=== PATIENT | male | born 1970 | race Caucasian/White ===

== ENCOUNTER → 2017-10-24 11:24 | Outpatient (CLI) | payer OTHER, SELFPAY ==
--- NOTE | 2017-10-24 | DI.RAD.S_ITS ---
PROCEDURE: XR FOOT LT MIN 3V INDICATIONS: LEFT GREAT TOE PAIN TECHNIQUE: 3 views of the foot were acquired. COMPARISON: None. FINDINGS: Bones: No fractures or dislocations. No suspicious bony lesions. Soft tissues: No tibiotalar joint effusion. Achilles tendon appears normal. IMPRESSION: No definite radiographic abnormality. If pain persists, consider cross sectional imaging such as CT or MRI for further assessment. Dictated by: Benny Lawson [facility] Interpreted: Ros Piper MD on 10/24/2017 at 11:52 Approved by: Ros Piper M.D. on 10/24/2017 at 11:55
== END ==
PROVIDERS: Family Provider Family Medicine; Visit Provider Family Medicine
DX: M79.675 Pain in left toe(s) (principal)
CPT/HCPCS: 73630

== ENCOUNTER → 2019-05-23 08:44 | Outpatient (CLI) | payer OTHER, SELFPAY ==
--- NOTE | 2019-05-23 | DI.US.S_ITS ---
PROCEDURE: US ABDOMEN COMPLETE INDICATIONS: UNSPECIFIED ABDOMINAL PAIN TECHNIQUE: Real-time scanning was performed of the abdominal and retroperitoneal organs, with image documentation. COMPARISON: None. FINDINGS: Liver: Liver is diffusely increased in echogenicity. No focal hepatic abnormalities identified. Normal hepatic size. Gallbladder: No gallstones identified. Normal gallbladder wall. No pericholecystic fluid. Negative sonographic Jin sign. Biliary ducts: Intrahepatic bile ducts are non-dilated. Extrahepatic bile duct caliber measures 3.0 mm. Normal is 6-7 mm or less in diameter, or 10 mm or less post-cholecystectomy. Pancreas: Visualized portions of the pancreas are sonographically normal. Spleen: Spleen is normal in size and homogeneous in echotexture. Kidneys: Kidneys are normal in size and echotexture. Right kidney measures 12.7 cm long; left kidney measures 12.6 cm long. No hydronephrosis or nephrolithiasis. No solid masses. Aorta: Visualized aorta is normal in caliber at less than 3 cm. Iliacs: Proximal common iliac arteries are normal in caliber at less than 2.5 cm. IVC: Intrahepatic inferior vena cava is patent. Miscellaneous: No free abdominal fluid. IMPRESSION: 1. Increased hepatic echogenicity noted possibly related to hepatic steatosis but other sources of hepatocellular disease including hepatic cirrhosis cannot be excluded. Recommend clinical correlation. 2. No source for abdominal pain identified. Dictated by: Benny Lawson [facility] Interpreted: Clifton Pennington MD on 05/23/2019 at 10:49 Approved by: Clifton Pennington M.D. on 05/23/2019 at 11:52
== END ==
PROVIDERS: Family Provider Family Medicine; Visit Provider Family Medicine
DX: R10.9 Unspecified abdominal pain (principal)
CPT/HCPCS: 76700

== ENCOUNTER → 2023-01-18 15:32 | Outpatient (CLI) | payer OTHER, SELFPAY ==
--- NOTE | 2023-01-18 | DI.RAD.S_ITS ---
PROCEDURE: XR RIBS LT MIN 3V W CXR1V INDICATIONS: RIB PAIN TECHNIQUE: For views of the left ribs were acquired, along with a single view chest. COMPARISON: CR, XR CHEST 2VW, 01/21/2015, 10:01. FINDINGS: Surgical changes and devices: None. Bones and chest wall: No fractures or dislocations. No suspicious bony lesions. Overlying soft tissues appear unremarkable. Lungs and pleura: No pleural effusions or pneumothorax. Lungs appear clear. Mediastinum: Mediastinal contours appear normal. Heart size is normal. IMPRESSION: No displaced left rib fractures. Dictated by: Michael Rodrigues M.D. on 01/18/2023 at 17:08 Approved by: Michael Rodrigues M.D. on 01/18/2023 at 17:10
== END ==
PROVIDERS: Family Provider Family Medicine; PCP Family Medicine; Referring Provider Family Medicine; Visit Provider Family Medicine
DX: R07.81 Pleurodynia (principal)
CPT/HCPCS: 71101

== ENCOUNTER 2023-10-30 06:23 | Inpatient (IN) | payer OTHER, SELFPAY ==
[2023-10-30] VITALS (7 sets, daily range): BP systolic 144–156; BP diastolic 79–100; PULSE 86–109; RESP 16–18; TEMP 35.8–37.4; O2SAT 93–98; BMI 35.6; BMI 37.3
[2023-10-30] MEDS: SODIUM CHLORIDE 0.9% 1,000 ML 1000 ML IV (06:51)
[2023-10-30 06:55] LABS: Add Manual Diff / Slide Review NO; Basophils Absolute Auto 100 /uL (0-100); Basophils Percent Auto 0.6 % (0-2); Eosinophils Absolute Auto 200 /uL (0-450); Eosinophils Percent Auto 1.4 % (2-4); Hematocrit 42.5 % (41-53); Hemoglobin 14.4 g/dL (13.5-17.5); Lymphocytes Absolute Auto 2300 /uL (1100-4500); Lymphocytes Percent Auto 17.1 % (25-40); Mean Corpuscular HGB Conc 33.8 % (30-36); Mean Corpuscular Hemoglobin 29.6 PG (26-34); Mean Corpuscular Volume 87.6 fL (80-100); Monocytes Absolute Auto 1200 /uL (0-900); Monocytes Percent Auto 8.9 % (3-14); Neutrophils Absolute Auto 9900 /uL (1500-7000); Platelet Count 239 X10^3/uL (150-400); Red Blood Cell Count 4.85 X10^6/uL (4.5-5.9); Red Cell Distribution Width 14.1 % (11.6-14.8); White Blood Cell Count 13.8 X10^3/uL (4.5-11.0)
[2023-10-30 07:06] LABS: Alanine Aminotransferase 35 IU/L (<50); Albumin 4.6 g/dL (3.5-5.0); Albumin Globulin Ratio 1.4 (1.0-2.8); Alkaline Phosphatase 93 U/L (38-126); Aspartate Aminotransferase 54 IU/L (17-59); BUN Creatinine Ratio 13.3 (6-22); Bilirubin Total 1.1 mg/dL (0.2-1.3); Blood Urea Nitrogen 14 mg/dL (9-20); Calcium 9.2 mg/dL (8.4-10.2); Carbon Dioxide 29 mmol/L (22-32); Chloride 105 mmol/L (98-107); Estimated Glomerular Filt Rate > 60 mL/min (>60); Globulin 3.2 g/dL (1.7-4.1); Glucose 139 mg/dL (70-100); HEMOLYSIS < 15 (0-50); Lipase 56 U/L (23-300); Potassium 4.3 mmol/L (3.4-5.1); Sodium 141 mmol/L (137-145); Total Protein 7.8 g/dL (6.3-8.2)
[2023-10-30 07:07] LABS: Lactate (Lactic Acid) 1.1 mmol/L (0.7-2.1)
--- NOTE | 2023-10-30 07:07 | ED_ITS ---
HPI - General Adult General Chief complaint: Abdominal Pain Stated complaint: abd pain Time Seen by Provider: 10/30/23 06:30 Mode of arrival: Ambulatory History of Present Illness HPI narrative: 53-year-old gentleman with a history of hypothyroidism presents with 4 days of abdominal. Started initially is generalized abdominal pain on , he felt that it was likely secondary to dehydration. On the that seem that it was getting worse involved his entire abdomen and was difficult to bend forward. He has been using Motrin, Tylenol, fluids. He has been having regular bowel movements that do not change his pain. He does not typically have difficulties with constipation. He has experienced some nausea but no vomiting. No fevers, palpitations, chest pain. He noted that yesterday it seemed that is things were somewhat improving but when he awoke this morning pain was clearly localizing entirely to be right side and more toward the right lower quadrant. He comes in for further evaluation Related Data Home Medications Medication Instructions Recorded Confirmed fluticasone propionate 50 1 spray intranasal ##0 09/22/16 mcg/actuation nasal spray,suspension levothyroxine 200 mcg tablet 200 mcg PO QAM ##0 09/22/16 Allergies Allergy/AdvReac Type Severity Reaction Status Date / Time Penicillins [PENICILLINS] Allergy Mild Rash Verified 10/30/23 11:35 Sulfa (Sulfonamide Allergy Mild Verified 10/30/23 11:35 Antibiotics) [SULFA (SULFONAMIDE ANTIBIOTICS)] Review of Systems Review of Systems Narrative: Pertinent positive and negative findings as per HPI Patient History Medical History (Updated 10/30/23 @ 09:05 by Radha Pinzon MD) Hypothyroidism (acquired) Social History household members: spouse and children Smoking Status: Never smoker alcohol intake: never Smoking Status: Never smoker Substance Use Type: does not use Exam Initial Vital Signs Initial Vital Signs: Vital Signs Temperature 96.5 F L 10/30/23 06:28 Pulse Rate 109 H 10/30/23 06:28 Respiratory Rate 18 10/30/23 06:28 Blood Pressure 156/88 H 10/30/23 06:28 Pulse Oximetry 98 10/30/23 06:28 Oxygen Delivery Method Room Air 10/30/23 06:28 General: Healthy appearing, in no acute distress. Able to give a complete and coherent history. Well-nourished well-developed HEENT: Moist mucous membranes, normal sclera with reactive pupils, Neck: No JVD, supple Respiratory: Lungs are clear to auscultation, no wheezing no rales no rhonchi. Full and symmetrical air movement Cardiac: Regular rate and rhythm no murmurs no bruits Abdomen: Soft, mild tenderness along the right side more in the right lower quadrant no obvious flank pain. No rebound or guarding. Good bowel tones. He does not have an acute surgical abdomen Skin: Warm and dry, no rashes Neurologic: Grossly neurologically intact with no obvious asymmetries or abnormalities Extremities: No trauma, well perfused Psych: Cooperative, appropriate insight and affect Course Orders Ordered: ED Orders 10/30/23 07:31 CT abdomen pelvis w con Stat Hydrocodone Bitart/Acetaminophen (Hydrocodone/Acet 5/325 Tablet) 1 tab PO Q4H PRN PRN Reason: Pain, Moderate (4-6) Hydrocodone Bitart/Acetaminophen (Hydrocodone/Acet 5/325 Tablet) 2 tab PO Q4H PRN PRN Reason: Pain, Severe (7-10) Hydromorphone HCl (Hydromorphone 0.5 Mg Inj) 0.5 mg IV Q15MIN PRN PRN Reason: Pain, Hydromorphone HCl (Hydromorphone 0.5 Mg Inj) 0.5 mg IV Q2H PRN PRN Reason: Pain, Severe (7-10) Sodium Chloride (Normal Saline 0.9%) 1,000 mls @ 150 mls/hr IV CONT [facility] Last Infusion: 10/30/23 09:47 Dose: 0 mls/hr Documented By: Admin: 10/30/23 09:11 Dose: 150 mls/hr Documented By: KATHY Sodium Chloride (Normal Saline 0.45%) 1,000 mls @ 100 mls/hr IV CONT [facility] Last Admin: 10/30/23 11:00 Dose: 100 mls/hr Documented By: DAVI Levofloxacin (Levaquin) 500 mg in 100 mls @ 100 mls/hr IV Q24H [place] Last Admin: 10/30/23 12:45 Dose: 100 mls/hr Documented By: DAVI Ibuprofen (Ibuprofen 600 Mg Tablet) 600 mg PO Q6H PRN PRN Reason: Fever/Mild Pain (1-3) Naloxone HCl (Naloxone 0.4 Mg/Ml Vial) 0.2 mg IV Q2MIN PRN PRN Reason: Opiate Reversal Ondansetron HCl (Ondansetron 4 Mg/2 Ml Inj) 4 mg IV Q8HR PRN PRN Reason: Nausea And Vomiting Discontinued Medications Sodium Chloride (Normal Saline 0.9%) 1,000 mls @ 1,000 mls/hr IV BOLUS ONE Stop: 10/30/23 07:41 Last Infusion: 10/30/23 07:39 Dose: Infused Documented By: Admin: 10/30/23 06:51 Dose: 1,000 mls/hr Documented By: SEAN Piperacillin Sod/Tazobactam (Sod 3.375 gm/ Sodium Chloride) 100 mls @ 25 mls/hr IV Q8H [place] Clindamycin Phosphate (Cleocin) 900 mg in 50 mls @ 50 mls/hr IV Q6H [place] Ondansetron HCl (Ondansetron 4 Mg/2 Ml Inj) 4 mg IV NOW ONE Stop: 10/30/23 09:06 Last Admin: 10/30/23 09:09 Dose: Not Given Documented By: KATHY Vital Signs Vital signs: Vital Signs - 8 hr 10/30/23 08:49 10/30/23 09:00 10/30/23 09:00 Pulse Rate 90 86 Blood Pressure 153/79 H Pulse Oximetry 96 94 Medical Decision Making Lab Data 10/30/23 06:45 10/30/23 06:45 Labs: Lab Results 10/30/23 Range/Units 06:45 WBC 13.8 H (4.5-11.0) X10^3/uL RBC 4.85 (4.5-5.9) X10^6/uL Hgb 14.4 (13.5-17.5) g/dL Hct 42.5 (41-53) % MCV 87.6 (80-100) fL MCH 29.6 (26-34) PG MCHC 33.8 (30-36) % RDW 14.1 (11.6-14.8) % Plt Count 239 (150-400) X10^3/uL Neut % (Auto) 72.0 (50-75) % Lymph % (Auto) 17.1 L (25-40) % [place] % (Auto) 8.9 (3-14) % Eos % (Auto) 1.4 L (2-4) % Baso % (Auto) 0.6 (0-2) % Neut # (Auto) 9900 H (1311-4156) /uL Lymph # (Auto) 2300 (9536-8509) /uL [place] # (Auto) 1200 H (0-900) /uL Eos # (Auto) 200 (0-450) /uL Baso # (Auto) 100 (0-100) /uL Sodium 141 (137-145) mmol/L Potassium 4.3 (3.4-5.1) mmol/L Chloride 105 (98-107) mmol/L Carbon Dioxide 29 (22-32) mmol/L BUN 14 (9-20) mg/dL Creatinine 1.05 (0.66-1.25) mg/dL Estimated GFR > 60 (>60) mL/min BUN/Creatinine Ratio 13.3 (6-22) Glucose 139 H (70-100) mg/dL Lactate 1.1 (0.7-2.1) mmol/L Calcium 9.2 (8.4-10.2) mg/dL Total Bilirubin 1.1 (0.2-1.3) mg/dL AST 54 (17-59) IU/L ALT 35 (<50) IU/L Alkaline Phosphatase 93 (38-126) U/L Total Protein 7.8 (6.3-8.2) g/dL Albumin 4.6 (3.5-5.0) g/dL Globulin 3.2 (1.7-4.1) g/dL Albumin/Globulin Ratio 1.4 (1.0-2.8) Lipase 56 (23-300) U/L Urine Dip Bedside Urine Glucose Negative Bedside Urine Bilirubin - Negative Bedside Urine Ketone - Negative Urine Specific [place] 1.000 Bedside Urine Occult Blood - Negative Bedside Urine pH 7.0 Bedside Urine Protein - Negative Bedside Urine Urobilinogen - Negative Bedside Urine Nitrite - Negative Bedside Urine Leukocytes - Negative Esterase Point of care testing: Urine Dip Bedside Urine Glucose Negative Bedside Urine Bilirubin - Negative Bedside Urine Ketone - Negative Urine Specific [place] 1.000 Bedside Urine Occult Blood - Negative Bedside Urine pH 7.0 Bedside Urine Protein - Negative Bedside Urine Urobilinogen - Negative Bedside Urine Nitrite - Negative Bedside Urine Leukocytes - Negative Esterase Imaging Data CT scan - abdomen/pelvis: Radiologist's Impression: PROCEDURE: CT ABDOMEN PELVIS W CON INDICATIONS: Right-sided abdominal pain, localizing after 3 days of gener TECHNIQUE: After the administration of intravenous contrast, axial sections acquired from the lung bases to the pubic symphysis. Coronal and sagittal reformats were performed. For radiation dose reduction, the following was used: automated exposure control, adjustment of mA and/or kV according to patient size. COMPARISON: None. FINDINGS: Image quality: Diagnostic Lower chest: Unremarkable lung bases. Normal heart size where visualized Liver: Possible hepatic steatosis Gallbladder and biliary system: Unremarkable, nondilated Pancreas: No ductal dilation Spleen: Nonenlarged Adrenals: No discrete nodules Kidneys: No hydronephrosis. No solid renal mass. Vessels and lymph nodes: The main portal vein is patent. Duplicated IVC incidentally noted. No pathologic lymph nodes by size criteria. Bowel and peritoneum: No evidence of small bowel obstruction. No pathologic ascites or drainable abscess. Acute appendicitis. There is an appendicoliths at the neck measuring 1.2 centimeters. Body wall: Small periumbilical fat containing hernia. Pelvis: Possible small left inguinal fat containing hernia. The bladder is under distended. The prostate is not well evaluated on this study Bones: No acute or suspicious osseous finding. There are degenerative changes. IMPRESSION: Acute appendicitis. Moderate surrounding inflammatory changes. There is a 1.2 centimeter appendicolith at the neck. No drainable rim enhancing abscess at this time. Other findings above Dictated by: Jonny Moran M.D. on 10/30/2023 at 8:09 MDM Narrative Medical decision making narrative: CC: Right-sided abdominal pain localizing after 3 days of generalized abdominal pain Complicating co-morbidities: Hypothyroidism Data collected from: patient Differential considered: Constipation, colitis, appendicitis doubt kidney stone or pyelonephritis, possibility of cholecystitis is entertained Exam documented above, pertinent findings include: Fairly benign exam mild pain in the right lower quadrant without rebound or guarding Lab Test results independently reviewed as above. Pertinent findings: CBC shows a white count at 13.8 with no leukocytosis. No significant left shift Chemistries are reassuring. LFTs are unremarkable Lipase is appropriate at 56 Lactic acid is not elevated Imaging studies independently reviewed: CT scan of the abdomen is consistent with acute appendicitis. Appendicolith is appreciated an appendix is dilated to 1.2 cm. No obvious abscess but there is moderate surrounding inflammatory changes Consultations: Dr. Barker, agrees with current treatments as outlined and will admit the patient with anticipation of surgical intervention later today Treatments: Patient has not required any pain medication, he has been given fluids, we will be started on Zosyn Discussion: 53-year-old gentleman with acute appendicitis without sepsis or rupture. Antibiotics were started, he will remain NPO, we will be admitted by Dr. Barker with anticipation of surgical intervention later today. Patient is informed of all findings and plans for procedure, questions are answered and he is safe for transfer to the floor Discharge Plan Departure Patient Disposition: Admitted as Observation Clinical Impression: Acute appendicitis Qualifiers: Acute appendicitis type: with localized peritonitis Appendicitis gangrene presence: without gangrene Appendicitis perforation presence: without perforation Appendicitis abscess presence: without abscess Qualified Code(s): K 35.30 - Acute appendicitis with localized peritonitis, without perforation or gangrene Admit Date/Time: 10/30/23 09:04 Admit Provider: Gera Barker
--- NOTE | 2023-10-30 07:31 | DI.CT.S_ITS ---
PROCEDURE: CT ABDOMEN PELVIS W CON INDICATIONS: Right-sided abdominal pain, localizing after 3 days of gener TECHNIQUE: After the administration of intravenous contrast, axial sections acquired from the lung bases to the pubic symphysis. Coronal and sagittal reformats were performed. For radiation dose reduction, the following was used: automated exposure control, adjustment of mA and/or kV according to patient size. COMPARISON: None. FINDINGS: Image quality: Diagnostic Lower chest: Unremarkable lung bases. Normal heart size where visualized Liver: Possible hepatic steatosis Gallbladder and biliary system: Unremarkable, nondilated Pancreas: No ductal dilation Spleen: Nonenlarged Adrenals: No discrete nodules Kidneys: No hydronephrosis. No solid renal mass. Vessels and lymph nodes: The main portal vein is patent. Duplicated IVC incidentally noted. No pathologic lymph nodes by size criteria. Bowel and peritoneum: No evidence of small bowel obstruction. No pathologic ascites or drainable abscess. Acute appendicitis. There is an appendicoliths at the neck measuring 1.2 centimeters. Body wall: Small periumbilical fat containing hernia. Pelvis: Possible small left inguinal fat containing hernia. The bladder is under distended. The prostate is not well evaluated on this study Bones: No acute or suspicious osseous finding. There are degenerative changes. IMPRESSION: Acute appendicitis. Moderate surrounding inflammatory changes. There is a 1.2 centimeter appendicolith at the neck. No drainable rim enhancing abscess at this time. Other findings above Dictated by: Jonny Moran M.D. on 10/30/2023 at 8:09 Approved by: Jonny Moran M.D. on 10/30/2023 at 8:11
[2023-10-30] MEDS: SODIUM CHLORIDE 0.9% 1,000 ML 150 ML IV (09:11)
--- NOTE | 2023-10-30 09:20 | P.HP_ITS ---
History of Present Illness History of Present Illness Date Patient Seen: 10/30/23 Time Patient Seen: 09:20 Chief complaint: abd pain Narrative: Tejinder is a 53-year-old man who presents with right-sided abdominal pain since Sunday. The pain started out as diffuse and generalized and became localized to the right lower quadrant. He came to the ER this morning and a CT showed acute uncomplicated appendicitis. No prior abdominal surgery. He has not eaten today. [facility] Medical History (Updated 10/30/23 @ 09:05 by Radha Pinzon MD) Hypothyroidism (acquired) Social History Smoking Status: Never smoker Meds Home Medications and Allergies Home Medications Medication Instructions Recorded Confirmed Type fluticasone propionate 50 1 spray intranasal ##0 09/22/16 History mcg/actuation nasal spray,suspension levothyroxine 200 mcg tablet 200 mcg PO QAM ##0 09/22/16 History Allergies Allergy/AdvReac Type Severity Reaction Status Date / Time Sulfa (Sulfonamide Allergy Mild Redness of Verified 10/30/23 06:55 Antibiotics) Skin [SULFA (SULFONAMIDE ANTIBIOTICS)] Penicillins [PENICILLINS] Allergy Unknown Rash Verified 10/30/23 06:55 Exam Vital Signs (past 8 hours): - 10/30/23 06:28 10/30/23 08:49 Temperature 96.5 F L Pulse Rate 109 H 90 Respiratory Rate 18 Blood Pressure 156/88 H Pulse Oximetry 98 96 Oxygen Delivery Method Room Air Oxygen Delivery Method Room Air Narrative Exam Narrative: Tender to palpation at McBurney's point Objective Labs 10/30/23 06:45 10/30/23 06:45 Labs: Laboratory Results - last 24 hr 10/30/23 06:45 WBC 13.8 H RBC 4.85 Hgb 14.4 Hct 42.5 MCV 87.6 MCH 29.6 MCHC 33.8 RDW 14.1 Plt Count 239 Neut % (Auto) 72.0 Lymph % (Auto) 17.1 L [place] % (Auto) 8.9 Eos % (Auto) 1.4 L Baso % (Auto) 0.6 Neut # (Auto) 9900 H Lymph # (Auto) 2300 [place] # (Auto) 1200 H Eos # (Auto) 200 Baso # (Auto) 100 Sodium 141 Potassium 4.3 Chloride 105 Carbon Dioxide 29 BUN 14 Creatinine 1.05 Estimated GFR > 60 BUN/Creatinine Ratio 13.3 Glucose 139 H Lactate 1.1 Calcium 9.2 Total Bilirubin 1.1 AST 54 ALT 35 Alkaline Phosphatase 93 Total Protein 7.8 Albumin 4.6 Globulin 3.2 Albumin/Globulin Ratio 1.4 Lipase 56 Assessment & Plan Assessment and plan (1) Acute appendicitis: Qualifiers: Acute appendicitis type: with localized peritonitis Appendicitis abscess presence: without abscess Appendicitis gangrene presence: without gangrene Appendicitis perforation presence: without perforation Qualified Code(s): K35.30 - Acute appendicitis with localized peritonitis, without perforation or gangrene Status: Acute Plan We reviewed the risks and benefits of laparoscopic appendectomy versus antibiotic therapy and he would like to proceed with laparoscopic appendectomy. Zosyn has been started.
--- NOTE | 2023-10-30 09:48 | PC.NURSE ---
Report given to Abran COE
[2023-10-30] MEDS: SODIUM CHLORIDE 0.45% 1,000 ML 100 ML IV ×2 (11:00→21:26)
--- NOTE | 2023-10-30 11:17 | PM.CALLCOV.1 ---
Call Coverage Note Note Date of Patient Contact: 10/30/23 Time of Patient Contact: 11:17 Narrative of Care Provided: 53M acute appendicitis. -Ok for clears until midnight -OR 10/[address] Orlando
--- NOTE | 2023-10-30 12:06 | PC.NURSE ---
Pt A&O. Offers no overt c/o stating pain is roughly 2-3 and tolerable. RLQ pain became an issue this morning and Pt made decision to come in. See admission assessment.
[2023-10-30] MEDS: levoFLOXacin 500 MG/100 ML PIGGYBACK 100 MG IV (12:45)
[2023-10-30] MEDS: IBUPROFEN 600 MG TABLET PO (16:23)
[2023-10-31] VITALS (44 sets, daily range): BP systolic 113–171; BP diastolic 62–106; PULSE 82–122; RESP 10–31; TEMP 36.4–38.1; O2SAT 83–98; BMI 37.3
--- NOTE | 2023-10-31 | PATH_ITS ---
[facility] Accession Number: [id number] No. of containers..01 Tissue . 01 Material submitted: . colon - RIGHT COLON . 01 Diagnosis: Colon, right, resection: Benign colon and small intestine with acute suppurative appendicitis with serositis, and focal fat necrosis. Lymph nodes: Benign lymph nodes with reactive follicular hyperplasia and sinus histiocytosis. Resection margins: Viable Negative for malignancy. See comment. -- Comment: There are enlarged lymphoid follicles seen in the lamina propria of terminal ileum, the germinal centers of these follicles are polarized with unremarkable morphology, however immunohistochemical stains are performed to rule out low grade lymphoma due to significant lymphoid follicles expansion. The immunohistochemical stains are performed on part A4 with appropriate controls show unremarkable lymphoid follicles. CD3, and CD5 highlight unremarkable T cells. CD20 highlights unremarkable B cells. BCL-6 and CD10 highlight normal geminal centers. BCL-2 highlights T cells, and interfollicular B cells, and is negative in germinal center B cells. Ki-67 highlights normal proliferation rate in polarized germinal centers. -- Technical Note: The immunohistochemical stains reported were performed at [facility] ([address], [facility] [address]). They were developed and their performance characteristics determined by [facility] [employer] They have not been cleared or approved by the U.S. Food and Drug Administration, although such approval is not required for analyte-specific reagents of this type. [facility] 11/08/2023 [facility] Local . 01 Electronically signed: . Carlos Leggett MD, Pathologist NPI- [id number] . 01 Gross description: . Received in formalin with two identifiers and right colon, is a right colon with an attached fragment of ileum measuring 7.6 x 2.5 cm, and segment of colon measuring 18.2 cm in length by 6.2 cm in average diameter. The serosa is thornton to hemorrhagic with thornton adherent material consistent with exudate located on the cecum. The ileal margin is inked blue, the colon margin is inked black, and the mesenteric margin is inked green. Sectioning through the portion of the cecum as well as the exudate reveals a U-shaped appendix adhered to solid, possibly necrotic adipose, and measures 7.8 cm in length. The contains and is obstructed by a brown roughened fecalith measuring 1.4 cm in greatest dimension. The lumen ranges from 0.2 to 0.6 cm in diameter, and contains thornton purulent material. The agudelo average 0.3 cm thick and are story-thornton with a presumed full thickness defect. . The mucosa of the ileum is thornton and velvety with numerous small polypoid nodules measuring up to 0.2 cm in greatest dimension with no distinct lesions or invasions identified. The mucosa of the colon is thornton and velvety with slightly attenuated folds and no distinct lesions identified. No diverticula are identified. . Palpation reveals 23 thornton lymph node candidates ranging from 0.3 to 0.9 cm in greatest dimension. . [employer] sections are submitted as follows: A1: Rep margins en face. A2 Perpendicular proximal appendix to cecum and one-half of bisected distal tip of appendix. A3; Cross section of presumed appendiceal defect. A4: Ileum to include nodular mucosa. A5: Ileocecal valve. A6: Unremarkable colon, A7: Six intact lymph node candidates. A8: Three intact lymph node candidates. A9: Three intact lymph node candidates. A10: Three intact lymph node candidates. A11: Two bisected, differentially inked, lymph node candidates. A12: Two bisected, differentially inked, lymph node candidates. A13: Single bisected lymph node candidate. A14: Two bisected, differentially inked, lymph node candidates. A15: Single bisected lymph node candidate. ([id number]) /MRV 11/02/2023 1738 Local . 01 Pathologist provided ICD-10: K35.80 . 01 CPT . 751616, [id number], [id number] Specimen Comment: A courtesy copy of this report has been sent to [phone] Performed at: [address] [id number] MD Dewye Griffin MD Phone: [phone]
[2023-10-31] MEDS: LACTATED RINGERS 1,000 ML 42 ML IV ×2 (07:54→10:12)
[2023-10-31] MEDS: LABETALOL 20 MG/4 ML SYRINGE 5 MG IV (07:54)
--- NOTE | 2023-10-31 08:35 | PM.PREOP ---
Pre-operative Note Interval Note History & Physical reviewed/Exam performed by Physician: Yes Changes to H&P: No H&P completed within 30 days and has changed as indicated here:: 53M with acute appendicitis. Recommending laparoscopic appendectomy. Overview of operation reviewed. Operative risks including hemorrhage, infection, damage to surrounding structures reviewed. he provides his written and verbal consent to proceed.
[2023-10-31] MEDS: CEFAZOLIN 2 GM/100 ML PREMIX 100 ML IV (08:49)
--- NOTE | 2023-10-31 09:07 | SUR.OPER ---
Supine on padded OR bed, head on pillow, arms padded and tucked at sides, legs uncrossed, safety belt at thigh, tape over blanket over lower legs .
--- NOTE | 2023-10-31 09:08 | SUR.OPER ---
Supine on padded OR bed, head on pillow, safety belt at thigh, left arm padded and tucked at side. Right arm secured on padded arm board <90 degrees abduction. Legs uncrossed. Padded footboard in place. Tape over blanket to secure lower legs.
[2023-10-31] MEDS: BUPIVACAINE 0.25% (PF) VIAL 30 ML INJ (09:24)
[2023-10-31] MEDS: BUPIVACAINE LIPOSOME 266 MG/20 ML VIAL INJ (10:36)
--- NOTE | 2023-10-31 12:04 | SUR.PHASEI ---
Report given to
--- NOTE | 2023-10-31 12:42 | SUR.PHASEI ---
1210 Respiratory therapy to bedside for eval. Lungs clear with short breaths. Able to use incentive Spirometer up to 1200ml. Pt with a few coughs. Currently on 6L Oxy mask. Dr De La Rosa updated. CPAP ordered. Pt complains of pain, then dozes off.
--- NOTE | 2023-10-31 12:48 | SUR.PHASEI ---
CPAP being applied by RT Turcios. SBAR report to Travis COE at bedside.
--- NOTE | 2023-10-31 12:55 | SUR.PHASEI ---
Assumed care. Justtin from RT placing BIPAP. O2 sat 91%.
[2023-10-31] MEDS: hydrOXYzine 50 MG/ML INJ 25 MG IM (12:58)
[2023-10-31] MEDS: HYDROMORPHONE 1 MG INJ IV ×2 (13:16→13:27)
[2023-10-31] MEDS: KETOROLAC 30 MG/ML VIAL IV (13:17)
--- NOTE | 2023-10-31 13:19 | P.OP_ITS ---
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 CT abdomen pelvis demonstrates 1.5 cm fecalith in the base of the appendix and appendicitis. Surgeon: Ector Orlando Airplane Dispatcher: Malik Villanueva Anesthesia Type: General Operative Notes Findings: Base of the appendix is entirely fixated to the cecum which is significantly dilated and rigid. No hepatic metastasis no carcinomatosis. Specimen(s): other (Right colon) Estimated Blood Loss (mL): 100 Procedure in detail: Patient was brought to the operating room placed supine on the table. Bilateral lower extremity compression devices were applied. General anesthesia was induced he was intubated with an endotracheal tube. Was then prepped and draped in sterile fashion. Time-out was performed. He received levofloxacin prior to skin incision. Infraumbilical incision was made in the abdomen was entered atraumatically. Pneumoperitoneum was established. Additional 5 mm working ports were placed in the suprapubic and left lower quadrant. Inspection of the abdomen was made. The tip of the appendix was identified in it was traced to the cecum. The base of the appendix was entirely absent it was essentially fused with the cecum. The cecum was quite abnormal it was dilated and extremely firm really unable to grasp it at all using the laparoscopic instruments. Its consistency was concerning for possible appendiceal malignancy. We tried to mobilize the right colon medially by incising along the white line of Toldt but the colon was so firm that we really could not grasp it safely with the instrumentation in order to retracted. At This point we converted to an open operation. A midline laparotomy was made. Palpation of the cecum was again concerning given its rigidity. We mobilized the right colon all the way to the hepatic flexure. The small bowel was divided at the level of the terminal ileum using the AYUSH stapler 75 mm blue load. The mesentery to the small bowel was then divided using the LigaSure. Given our findings at this point were concerned for possible appendiceal carcinoma and if this were the case he would require of formal right hemicolectomy and therefore we decided to perform a right hemicolectomy as opposed to a ileocecectomy. The colon was then divided just distal to the hepatic flexure. We continued to mobilize the hepatic flexure and the sweep of the duodenal was identified and kept posterior out of harm's way. The ileocolic pedicle was skeletonized and then was ligated twice with 0 silk suture at its base. The specimen was then passed off the field la beled right hemicolectomy. We formed a [id number] functional end and anastomosis between the terminal ileum and the transverse colon. A crotch stitch with silk was placed. An enterotomy and a colotomy were made 3rd staple load was used to create a common channel. The common channel was inspected it was hemostatic and widely patent. The common opening was then closed in a running fashion using 3-0 PDS suture. Staple line was imbricated using interrupted silk suture. The anastomosis sat without tension no evidence of leak and was well perfused. The mesenteric defect was closed using Vicryl. The abdomen was then copiously lavaged hemostasis was checked and the irrigation returned clear. At this point we injected Exparel into the peritoneum. We raised skin flaps bilaterally. The fascia was then closed in a running manner using looped PDS suture. Given his obesity, large incision length which was necessary given his intra abdominal adiposity and the contaminated nature of the operation his risk of developing a incisional hernia was significant elevated. We therefore placed a piece of Phasix mesh in an onlay fashion over the anterior fascia. It was fixated in place using interrupted Ethibond suture. The subcutaneous tissue was then reapproximated using Vicryl suture. Skin was closed with hannah followed by the application of a sterile dressing. He tolerated the operation well and was transferred to recovery in stable condition. The sponge and instrument count at the end of the operation was correct x2 Complications: none Post-operative Condition: stable Disposition: ICU
--- NOTE | 2023-10-31 13:24 | SUR.PHASEI ---
Report called to Keyshawn
--- NOTE | 2023-10-31 13:28 | CM.DANOTE ---
Brief DCP Assessment Note Pt is a 53yo M here after experiencing right-sided abdominal pain since Sunday. Found to have acute appendicitis. Pt went to the OR with Dr. Orlando for a lap appy Wed 10.31.23. PCP [facility] REIMBURSEMENT SPECIALIST reviewed EMR. Per RN report, during lap appy surgeon found legions (cancerous?) during intervention. Pt to remain on BiPAP and transfer to the ICU. Per chart review, pt lives in [place] with spouse Jennifer (p [phone]) and children. Pt is indep/active/drives at baseline. Plan: CM team to follow closely for ongoing medical needs as medical POC continues to unfold. Anticipate home with spouse support when medically stable. ETHAN Aj Discharge Planning/Care Management CM Discharge Assessment Start: 10/31/23 13:27 Freq: Status: Active Protocol: Document 10/31/23 13:27 (Rec: 10/31/23 13:28 [id number]) Discharge Planning Assessment Assigned Production Team Member ETHAN Ricketts DPOA/Assigned Designee Name Jennifer, spouse Contact Information [phone] Advance Directives? No History Provided By Patient Prior Living Arrangements House Household Members spouse,children Type of transporation used prior to Drives own vehicle admit Independent with ADL's Yes Discharge Plan Home Referrals Initiated None needed Whiteboard Updated in Patient Room with No name and ext. # of Production Team Member Review Status In Process Please Provide Date Initial DC 10/31/23 Assessment Was Performed Next Review Type Continued Stay Review
[2023-10-31] MEDS: ONDANSETRON 4 MG/2 ML INJ IV (14:00)
--- NOTE | 2023-10-31 14:14 | SUR.PHASEI ---
Patient transferred to ICU after NC trail by RTTam. Patient 92% 2L NC. Transferred with cardiac technician and RT present. Patient transferred to the ICU bed by slider board. Report given to Keyshawn. Spouse present and was updated with patient status.
[2023-10-31] MEDS: HYDROCODONE/ACET 5/325 TABLET 2 TAB PO ×2 (15:26→19:08)
--- NOTE | 2023-10-31 15:41 | PT-IP ANOTE ---
PT eval order received and EMR reviewed but no operative note yet from the doctor after recent surgery/procedure. Talked with nurse and pt just got back up to the acute floor and not ready for PT. will f/u tomorrow.
[2023-10-31] MEDS: levoFLOXacin 500 MG/100 ML PIGGYBACK 100 MG IV (15:48)
[2023-10-31] MEDS: CELECOXIB 200 MG CAPSULE PO (20:53)
[2023-10-31] MEDS: SODIUM CHLORIDE 0.9% 1,000 ML 150 ML IV (21:56)
[2023-11-01] VITALS (21 sets, daily range): BP systolic 122–154; BP diastolic 70–87; PULSE 85–121; RESP 16–28; TEMP 36–37.1; O2SAT 92–97
[2023-11-01] MEDS: HYDROCODONE/ACET 5/325 TABLET 2 TAB PO ×4 (04:41→17:45)
[2023-11-01] MEDS: LEVOTHYROXINE 100 MCG TABLET 200 MCG PO (05:52)
--- NOTE | 2023-11-01 06:35 | PC.NURSE ---
pt slept most of the shift; he was medicated at 0441 w/ [place] 2 tabs for c/o pain 12/18; pt returned to sleeping after medication admin; tolerating po intake; no c/o nausea
[2023-11-01] MEDS: CELECOXIB 200 MG CAPSULE PO ×2 (08:31→20:59)
[2023-11-01] MEDS: ENOXAPARIN 40 MG/0.4 ML SYRINGE SUBCUT (08:34)
[2023-11-01] MEDS: METOPROLOL ER 25 MG TABLET PO (12:42)
--- NOTE | 2023-11-01 12:43 | PT.IIE ---
Current Diagnoses Acute appendicitis with localized peritonitis, without perforation or gangrene (11/01/23) Surgery Performed Operation Date: 10/31/23 08:00 Actual Procedures p RIGHT HEMICHOLECTOMY WITH MESH(Not Applicable) - Ector Orlando MD Medical History (Last Updated 10/30/23 @ 07:29 by Radha Pinzon MD) Hypothyroidism (acquired) Physical Therapy Inpatient Evaluation/Re-Eval M1 PT/OT-IP Prior Functional Status Start: 11/01/23 11:59 Freq: NEEDED Status: Active Protocol: Document 11/01/23 12:05 MB (Rec: 11/01/23 12:41 MB [id number]) Medical Review Prior Functional Status Medical History Reviewed Yes Diet/Fluid Consistency Regular Communication WNL Mobility and Gait I Activities of Daily Living and IADL's I Social History Household Members spouse,children Living Arrangements House Number of Floors (Floors) One Floor Number of Stairs To Enter/Railing? 3 steps with rail to enter Home Environment Standard Height Toilet,Walk in Shower Employment Status Retired M2 PT-IP Current Condition Start: 11/01/23 11:59 Freq: NEEDED Status: Active Protocol: Document 11/01/23 12:05 MB (Rec: 11/01/23 12:41 MB [id number]) Physical Therapy Current Condition Current Condition Evaluation Date 11/01/23 Treatment Diagnosis Appendectomy M3 PT-IP Subjective Start: 11/01/23 11:59 Freq: NEEDED Status: Active Protocol: Document 11/01/23 12:05 MB (Rec: 11/01/23 12:41 MB [id number]) Subjective Physical Therapy Visit Type Type Initial Evaluation Visit Start Time 12:05 Visit Stop Time 12:25 Number of PRODUCT HANDLER Visits 0 Physical Therapy Visit Comments Patient Comments Pt states that he does not have abdominal pain when not moving Therapy Pain Assessment Pain When Pain Assessed During Mobility Pain Present Pain Present Pain Reported Location Right Lower Abdomen Intensity 3 Scale Used Numeric (0 - 10) M4 PT-IP Mobility and Gait Start: 11/01/23 11:59 Freq: NEEDED Status: Active Protocol: Document 11/01/23 12:05 MB (Rec: 11/01/23 12:41 MB [id number]) PT-Bed Mobility Assessment Rolling Type of Rolling Log Rolling Level of Assist Independent Supine to Sit Supine to Sit Independent,Bedrails Sit to Supine Sit to Supine Independent Scooting Scooting to Edge of Bed Independent Scooting Up and Down in Bed Independent PT-Transfer Assessment Sit to and From Stand Sit to and from Stand Independent Equipment Transfer Assistive Device Gait Belt Orthotic/Prosthetic Devices or Brace: Yes Transfers Transfer Destination Bed,Chair Transfer Technique Walking Transfer Ability Level of Assist Independent,Standby Assistance Comments Mobility Comments Pt holds abdomen and uses rail to get up to sitting Gait Assessment Gait Gait Assistance Required: Independent Distance (Feet) 100 Able to Maintain Weight Bearing Status Yes During Gait Assistive Devices Assistive Device Gait Belt Orthotic/Prosthetic Devices or Brace: No Gait Deviations General Gait Pattern Antalgic Factors Limiting Gait Function Factors Limiting Gait Function Pain Comments Gait Comments Pt holds abdomen with gait and gait is slow Stair Climbing Assessment Evaluation Level of Assist On Stairs Independent Devices Stair Climbing Assistive Devices Left Railing Technique/Endurance Stair Climbing Direction Ascend and Descend Stair Climbing Technique Step Over Step Number of Steps Climbed 3 Query Text: Stair Climbing Set # Repetitions (reps) 1 PT-Balance Assessment Sitting Balance and Reactions Static Sitting Balance Ability Good Dynamic Sitting Balance Ability Good Standing Balance and Reactions Static Standing Balance Ability Good Dynamic Standing Balance Ability Good Device Used None M5 PT-IP Objective Assessments Start: 11/01/23 11:59 Freq: NEEDED Status: Active Protocol: Document 11/01/23 12:05 MB (Rec: 11/01/23 12:41 MB [id number]) Orientation Orientation/Cognition Level of Alertness Alert Orientation Name,Place,Situation Language Function Ability No Deficits Noted Safety Awareness Understands Safety Issues Memory Description No Deficits Noted Gross Range of Motion Upper Extremity ROM Assessment Within Functional Limits Lower Extremity ROM Assessment Within Functional Limits Strength Upper Extremity Strength Assessment Within Functional Limits Lower Extremity Strength Assessment Within Functional Limits M6 PT-IP Treatment Start: 11/01/23 11:59 Freq: NEEDED Status: Active Protocol: Document 11/01/23 12:05 MB (Rec: 11/01/23 12:41 MB [id number]) Physical Therapy Treatment Education Education Provided Post-Op Packet,Safety M7 PT-IP Assessment and Plan Start: 11/01/23 11:59 Freq: NEEDED Status: Active Protocol: Document 11/01/23 12:05 MB (Rec: 11/01/23 12:41 MB [id number]) PT Summary Assessment and Plan Potential Rehabilitation Potential Good Status of Condition at Evaluation Evolving Summary Impairments Activity Tolerance Progress Towards Goals Safe For Discharge Assessment Summary Pt is a 53 y/o male POD1 appendectomy. Pt holds abdomen with mobility and his gait is slow but he moves well and is able to perform log rolling today. No further acute PT needs. Pt has been up walking with and encouraged this as cleared by nsg. Frequency of Treatment Frequency Of Treatment Discharge Precautions Abdominal Surgery Precautions Log Roll,Lifting Restrictions, Gait Belt above Incisional Area Weight Bearing Status Weight Bearing Status Weight Bear as Tolerated Recommendations To Nursing Amount of Assist Needed Standby Assistance Discharge Recommendations PT Discharge Recommendations Home with Assistance Transportation Needs at Discharge Private Vehicle
--- NOTE | 2023-11-01 12:57 | P.PN_ITS ---
Subjective Subjective Date Patient Seen: 11/01/23 Time Patient Seen: 12:57 Interval history: Postoperative day 1 status post laparoscopic converted to open right hemicolectomy. -no acute overnight events. -tolerating clears Exam Vital Signs (past 8 hours): - 11/01/23 05:00 11/01/23 05:00 11/01/23 05:30 Temperature Pulse Rate 91 H 121 H Respiratory Rate 17 28 H Blood Pressure 149/77 H Pulse Oximetry 93 Oxygen Flow Rate 11/01/23 06:00 11/01/23 06:00 11/01/23 06:30 Temperature Pulse Rate 94 H 86 Respiratory Rate 17 18 Blood Pressure 135/71 Pulse Oximetry Oxygen Flow Rate 11/01/23 08:00 11/01/23 08:24 11/01/23 12:42 Temperature 98.2 F 98 F Pulse Rate 86 95 H 100 H Respiratory Rate 18 18 Blood Pressure 140/74 141/78 H 122/77 Pulse Oximetry 97 93 Oxygen Flow Rate 0 11/01/23 12:46 Temperature Pulse Rate 100 H Respiratory Rate 18 Blood Pressure 122/77 Pulse Oximetry 95 Oxygen Flow Rate Fraction of Inspired Oxygen 28 SaO2/FiO2 Ratio 335 Oxygen Delivery Method Nasal Cannula Oxygen Flow Rate 0 Narrative Exam Narrative: General adult man alert oriented no acute distress Abdomen soft appropriately tender to palpation. Objective Labs 10/30/23 06:45 10/30/23 06:45 [facility] Medical History (Updated 10/30/23 @ 09:05 by Radha Pinzon MD) Hypothyroidism (acquired) Social History household members: spouse and children Smoking Status: Never smoker alcohol intake: never Assessment & Plan Post-op Postoperative Procedures: Procedures Operation Date: 10/31/23 08:00 Actual Procedure Side Surgeon p RIGHT HEMICHOLECTOMY WITH MESH Not Applicable Ector Orlando MD Postoperative status narrative: 53-year-old male postoperative day 1 status post laparoscopic appendectomy converted to right hemicolectomy for concern of appendiceal carcinoma. Appropriate for postoperative day 1. Postoperative plan: routine post-op care Quality VTE Deep Vein Thrombosis/Pulmonary Embolism Present on Admission: No
--- NOTE | 2023-11-01 15:41 | CM.DPC ---
DCP Continued: Reviewed EMR and team rounds for pt?s medical status. Per RN, pt will need to continue to tolerate liquids and switch from IV pain meds to PO before dc home. DCP met with pt at bedside, introduced self and role. Pt confirmed living situation and support with , Jennifer. Pt endorses feeling better today and is eager to return home when medically cleared. Pt denied any discharge needs at this time. Plan: Anticipating dc home with spouse to transport. CM Team will continue to follow for coordination of discharge plans. JUAN RAMON Rosenbaum
[2023-11-01] MEDS: DOCUSATE 100 MG CAPSULE PO (16:04)
[2023-11-02] MEDS: HYDROCODONE/ACET 5/325 TABLET 2 TAB PO ×2 (00:22→10:17)
[2023-11-02 00:24] VITALS: BP 141/91; PULSE 94; RESP 16; TEMP 37.1; O2SAT 95
[2023-11-02] MEDS: HYDROCODONE/ACET 5/325 TABLET 1 TAB PO (05:45)
[2023-11-02 05:46] VITALS: BP 131/91; PULSE 97; RESP 16; TEMP 37.2; O2SAT 94
[2023-11-02] MEDS: LEVOTHYROXINE 100 MCG TABLET 200 MCG PO (05:46)
[2023-11-02] MEDS: ENOXAPARIN 40 MG/0.4 ML SYRINGE SUBCUT (08:20)
[2023-11-02] MEDS: METOPROLOL ER 25 MG TABLET PO (08:21)
[2023-11-02] MEDS: CELECOXIB 200 MG CAPSULE PO (08:21)
[2023-11-02 09:00] VITALS: BP 156/89; PULSE 96; RESP 16; TEMP 36.6; O2SAT 99
--- NOTE | 2023-11-02 12:28 | P.DS_ITS ---
History of Present Illness History of Present Illness Date Patient Seen: 11/02/23 Time Patient Seen: 13:12 Chief complaint: abd pain Narrative: Tejinder Soto is a 53-year-old man who presented to [facility] October 29 with acute abdominal pain. Workup demonstrated acute appendicitis with a 1.5 cm fecalith in the base of the appendix. Discharge Providers Provider Date of admission: 11/01/23 10:12 Discharge Date: 11/02/23 Primary care physician: Lisy Singleton MD Consults: 10/31/23 12:16 Consult to Physical Therapy Evaluate & Treat Comment: Physician Instructions: Evaluate and Treat Discharge provider: Ector Orlando MD Summary Hospital Course Discharge Diagnosis: Acute appendicitis Hospital Course: Patient underwent a laparoscopic appendectomy converted to a open right hemicolectomy October 30. Operative findings were significant for a rigid appendix and cecum quite concerning for possible appendiceal carcinoma. He had a unremarkable postoperative course. At the time of discharge he is tolerant of a regular diet ambulatory has return of bowel function in his pains appropriately controlled with oral medication. At this time surgical pathology is pending. Exam Vital Signs (past 8 hours): - 11/02/23 05:46 11/02/23 09:00 Temperature 99 F 97.8 F Pulse Rate 97 H 96 H Respiratory Rate 16 16 Blood Pressure 131/91 H 156/89 H Pulse Oximetry 94 99 Fraction of Inspired Oxygen 28 SaO2/FiO2 Ratio 335 Oxygen Delivery Method Nasal Cannula Oxygen Flow Rate 0 Narrative Exam Narrative: General adult man alert oriented no acute distress Chest nonlabored respiration Abdomen midline incision clean dry intact with dressing Extremities warm well perfused Objective Labs 10/30/23 06:45 10/30/23 06:45 [facility] Medical History (Updated 10/30/23 @ 09:05 by Radha Pinzon MD) Hypothyroidism (acquired) Social History household members: spouse and children Smoking Status: Never smoker alcohol intake: never Discharge Plan Discharge Plan Patient Disposition: Home Provider Discharge Comment: -Okay to shower with dressing in place -Do not submerge wounds in water until seen in follow-up. -No lifting >10 lbs x 4 weeks. -Walking only for exercise for 4 weeks. -No driving while taking narcotics. Discharge orders & Medications Prescriptions: New ibuprofen 200 mg tablet 400 mg PO Q6H Qty: 60 0RF docusate sodium [Colace] 100 mg capsule 100 mg PO BID Qty: 30 0RF oxycodone 5 mg tablet 5 mg PO Q6H PRN (Reason: pain) Qty: 20 0RF acetaminophen [Tylenol] 325 mg capsule 650 mg PO QID PRN (Reason: pain) Qty: 60 0RF Continued levothyroxine 200 MCG tablet 200 mcg PO QAM Qty: 0 fluticasone propionate 16 GM spray,suspension 1 spray Intranasal PRN PRN (Reason: Allergy Symptoms) Qty: 0 atorvastatin 10 mg tablet 10 mg PO DAILY metoprolol succinate 25 mg tablet extended release 24 hr 25 mg PO DAILY Follow up/Referrals: Ector Orlando MD [Physician] - 1 Week Diet/Activity/Treatments Diet: Diet as Tolerated Skin/Wound/Dressing Care Report to your healthcare provider any signs of infection, such as:: chills, fever, increased pain, unusual drainage and unusual redness Visit Report/Discharge Packet Instructions: Soft Diet, DI for Colectomy, DI for Laparoscopy, How to Prevent Falls, DI for Prescription Opioid Use, [facility]: Wound Care Stand Alone Forms: Patient Portal/API, Stroke Signs & Symptoms Discharge Data Primary Care Provider: Lisy Singleton VTE Deep Vein Thrombosis/Pulmonary Embolism Present on Admission: No
--- NOTE | 2023-11-02 12:56 | PC.NURSE ---
Discharge: Pt feels ready to d/c to home. Is voiding w/out problems. Up and amb in the hallways, Po pain meds effective. Pt denies any problems with going home today. Seen by MD and given discharge instructions. Discharge packet given and reviewed. He understands his wound care. Rx has been esent. Questions answered. Pt d/c to home auto w/spouse.
== END 2023-11-02 11:45 | disposition home or self-care (01) | DRG 331 ==
LOC: ED 07:05 → AC 09:05 → ICU 10-31 13:31 → AC 11-01 07:53
PROVIDERS: Emergency Medicine; Surgery; Admitting Provider Surgery; Emergency Provider Emergency Medicine; Family Provider Family Medicine; PCP Family Medicine; Referring Provider Emergency Medicine; Visit Provider Surgery
PROC: 0DTJ4ZZ Resection of Appendix, Percutaneous Endoscopic Approach (ICD-10-PCS; CPT 44970; principal; 2023-10-31 08:00)
DX: K35.80 Unspecified acute appendicitis (principal); K38.1 Appendicular concretions; E03.9 Hypothyroidism, unspecified
CPT/HCPCS: 36415; 44160; 74177; 80053; 81003; 83605; 83690; 85025; 94660; 94762; 97161; 99221; 99284; 99285; C1781; G0378; C9290; J0360; J0690; J1100; J1170; J1650; J1885; J1956; J2405; J2704; J3010; J3410; J7050; Q9967

== ENCOUNTER → 2023-11-24 08:23 | Outpatient (CLI) | payer OTHER, SELFPAY ==
[2023-11-15 10:51] VITALS: RESP 29; O2SAT 92; BMI 37.3
[2023-11-24 10:22] LABS: Alanine Aminotransferase 22 IU/L (<50); Albumin 3.7 g/dL (3.5-5.0); Albumin Globulin Ratio 1.2 (1.0-2.8); Alkaline Phosphatase 180 U/L (38-126); Aspartate Aminotransferase 30 IU/L (17-59); BUN Creatinine Ratio 11.7 (6-22); Bilirubin Total 0.5 mg/dL (0.2-1.3); Blood Urea Nitrogen 9 mg/dL (9-20); Calcium 9.6 mg/dL (8.4-10.2); Carbon Dioxide 30 mmol/L (22-32); Chloride 104 mmol/L (98-107); Cholesterol 101 mg/dL (140-199); Creatine Kinase 59 U/L (55-170); Estimated Glomerular Filt Rate > 60 mL/min (>60); Glucose 103 mg/dL (70-100); HDL Cholesterol 18 mg/dL (40-60); HEMOLYSIS < 15 (0-50); LDL Cholesterol Calculated 28 mg/dL (<100); Potassium 4.7 mmol/L (3.4-5.1); Sodium 138 mmol/L (137-145); Total Protein 6.7 g/dL (6.3-8.2); Triglycerides 273 mg/dL (35-150)
[2023-11-24 10:37] LABS: Free T4, Direct Thyroxine 2.55 ng/dL (0.78-2.19)
[2023-11-24 10:54] LABS: Thyroid Stimulating Hormone < 0.015 uIU/mL (0.47-4.68)
[2023-11-29 12:36] LABS: Percent Free Testosterone 3.17 % (1.50-4.20); Testosterone Free 5.19 ng/dL (5.00-21.00); Testosterone Total 163.6 ng/dL (264.0-916.0)
== END ==
LOC: LAB 08:24
PROVIDERS: Family Provider Family Medicine; PCP Family Medicine; Referring Provider Family Medicine; Visit Provider Family Medicine
DX: Z13.29 Encounter for screening for other suspected endocrine disorder (principal); E34.9 Endocrine disorder, unspecified; E03.9 Hypothyroidism, unspecified; I10 Essential (primary) hypertension; E78.2 Mixed hyperlipidemia
CPT/HCPCS: 36415; 80053; 80061; 82550; 84402; 84403; 84439; 84443

== ENCOUNTER → 2023-12-27 11:57 | Outpatient (CLI) | payer OTHER, SELFPAY ==
[2023-11-15 10:51] VITALS: RESP 29; O2SAT 92; BMI 37.3
--- NOTE | 2023-12-27 11:58 | DI.CT.S_ITS ---
PROCEDURE: CT ABDOMEN PELVIS W CON INDICATIONS: Issues PO appendectomy TECHNIQUE: After the administration of intravenous contrast, axial sections acquired from the lung bases to the pubic symphysis. Coronal and sagittal reformats were performed. For radiation dose reduction, the following was used: automated exposure control, adjustment of mA and/or kV according to patient size. COMPARISON: [facility], CT, CT ABDOMEN PELVIS W CON, 10/30/2023, 7:47. FINDINGS: Image quality: Diagnostic. Lower Chest: No significant findings. ABDOMEN: Liver: No solid mass. Gallbladder: No radiopaque gallstones or wall thickening. Biliary ducts: No biliary dilation. Pancreas: No ductal dilation. Spleen: Size is within normal limits. Adrenal Glands: No adrenal nodules. Kidneys and Ureters: No hydronephrosis. No solid mass. No complex renal cystic lesion which requires follow up. Stomach and Bowel: Postsurgical changes with ileocolic anastomosis. Inflammatory changes are seen around the anastomosis. No organized fluid collections or extraluminal gas is seen. Peritoneum: Trace free fluid in the right lower quadrant, likely reactive.. No free air. Ventral Wall: Fluid collection within the deep subcutaneous fat of the anterior abdominal wall, just anterior to the rectus musculature measuring 7.2 x 2.4 x 12.9 cm (TV by AP by cc). This collection demonstrates a thick wall and a possible fistula tract inferiorly to the skin surface. Abdominal Nodes: No retroperitoneal or mesenteric adenopathy by size criteria. Vessels: Thrombosis of the superior mesenteric vein extending to the right abdomen. Aorta and inferior vena cava are normal in size. Mild atherosclerotic vascular calcifications. PELVIS: Pelvic Organs: Unremarkable. Bladder: No bladder wall thickening, accounting for underdistention. Pelvic Nodes: No enlarged lymph nodes. Miscellaneous: No inguinal hernias are seen. Bones: No aggressive osseous abnormality. IMPRESSION: 1. 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 2. Thick-walled fluid collection within the deep subcutaneous tissue of the anterior abdominal wall measuring 7.2 x 2.4 x 12.9 cm with a possible fistula track inferiorly to the skin surface. 3. Postsurgical changes with ileocolic anastomosis. Inflammatory changes are seen around the anastomosis and trace fluid. No organized fluid collections or extraluminal gas. Dictated by: Venancio Connor M.D. on 12/27/2023 at 14:02 Approved by: Venancio Connor M.D. on 12/27/2023 at 14:11
== END ==
LOC: CT 11:58
PROVIDERS: Family Provider Family Medicine; PCP Family Medicine; Referring Provider Surgery; Visit Provider Surgery
DX: K55.059 Acute (reversible) ischemia of intestine, part and extent unspecified (principal); L08.9 Local infection of the skin and subcutaneous tissue, unspecified; Z98.0 Intestinal bypass and anastomosis status; Z90.49 Acquired absence of other specified parts of digestive tract
CPT/HCPCS: 74177; Q9967